=== PATIENT | male | born 1985 | race Caucasian/White ===

== ENCOUNTER 2017-08-23 20:53 | Observation (INO) | payer OTHER ==
--- NOTE | 2017-08-23 21:04 | EDM.PDOC ---
ED HPI GENERAL MEDICAL PROBLEM - General Chief Complaint: Abdominal Pain Stated Complaint: ABDOMINAL PAIN/POST SURGERY Time Seen by Provider: 08/23/17 21:03 Source of Information: Reports: Patient - History of Present Illness INITIAL COMMENTS - FREE TEXT/NARRATIVE: HISTORY AND PHYSICAL: History of present illness: [Patient with abdominal pain, he recently had a surgery concerning an obstruction and Meckel's diverticulum approximately 3 weeks ago Patient currently vomiting as 8 out of 10 epigastric pain ] Review of systems: As per history of present illness and below otherwise all systems reviewed and negative. Past medical history: As per history of present illness and as reviewed below otherwise noncontributory. Surgical history: As per history of present illness and as reviewed below otherwise noncontributory. Social history: No reported history of drug or alcohol abuse. Family history: As per history of present illness and as reviewed below otherwise noncontributory. Physical exam: HEENT: Atraumatic, normocephalic, pupils reactive, negative for conjunctival pallor or scleral icterus, mucous membranes moist, throat clear, neck supple, nontender, trachea midline. Lungs: Clear to auscultation, breath sounds equal bilaterally, chest nontender. Heart: S1S2, regular, negative for clicks, rubs, or JVD. Abdomen: Soft, nondistended, multifocal tenderness Negative for masses or hepatosplenomegaly. Negative for costovertebral tenderness. Pelvis: Stable nontender. Genitourinary: Deferred. Rectal: Deferred. Extremities: Atraumatic, negative for cords or calf pain. Neurovascular unremarkable. Neuro: Awake, alert, oriented. Cranial nerves II through XII unremarkable. Cerebellum unremarkable. Motor and sensory unremarkable throughout. Exam nonfocal. Diagnostics: [CBC CMP UA lipase ]CT abdomen pelvis with contrast Therapeutics: [1 L normal saline bolus Zofran 8 mg IV Morphine 4 mg IV] Morphine 2 mg IV Reglan 10 mg IV Normal saline 1 25 mL per hour Impression: Partial bowel obstruction [Abdominal pain] Definitive disposition and diagnosis as appropriate pending reevaluation and review of above. Abdomen Pain Score (Numeric/FACES): 5 - Related Data Allergies Allergy/AdvReac Type Severity Reaction Status Date / Time acetaminophen [From Tylenol] Allergy Hives Verified 08/23/17 22:15 Home Meds: Home Meds . [No Known Home Meds] 08/23/17 [History] ED ROS GENERAL - Review of Systems Review Of Systems: ROS reveals no pertinent complaints other than HPI. ED EXAM, GENERAL - Physical Exam Exam: See Below Course - Vital Signs Last Recorded V/S: Last Vital Signs Temp 97.6 F 08/23/17 22:13 Pulse 74 08/23/17 22:13 Resp 18 08/23/17 22:13 BP 117/83 08/23/17 22:13 Pulse Ox 95 08/23/17 22:13 - Orders/Labs/Meds Orders: Active Orders 24 hr Category Date Time Status Abdomen Pelvis w Cont [CT] Stat Exams 08/23/17 21:53 Taken UA W/MICROSCOPIC [URIN] Stat Lab 08/23/17 21:02 Ordered Metoclopramide [Reglan] Med 08/24/17 00:38 Once 10 mg IV ONETIME ONE Morphine Med 08/24/17 00:38 Once 2 mg IVPUSH ONETIME ONE Sodium Chloride 0.9% [Normal Saline] 1,000 ml Med 08/24/17 00:45 Ordered IV STAT Labs: Laboratory Tests 08/23/17 08/23/17 Range/Units 21:11 21:11 WBC 11.65 H (4.0-11.0) K/uL RBC 5.34 (4.50-5.90) M/uL Hgb 16.4 (13.0-17.0) g/dL Hct 47.8 (38.0-50.0) % MCV 89.5 (80.0-98.0) fL MCH 30.7 (27.0-32.0) pg MCHC 34.3 (31.0-37.0) g/dL RDW Std Deviation 41.0 (28.0-62.0) fl RDW Coeff of Mian 13 (11.0-15.0) % Plt Count 186 (150-400) K/uL MPV 9.60 (7.40-12.00) fL Neut % (Auto) 79.3 (48.0-80.0) % Lymph % (Auto) 15.1 L (16.0-40.0) % Meade % (Auto) 5.1 (0.0-15.0) % Eos % (Auto) 0.3 (0.0-7.0) % Baso % (Auto) 0.2 (0.0-1.5) % Neut # (Auto) 9.2 H (1.4-5.7) K/uL Lymph # (Auto) 1.8 (0.6-2.4) K/uL Meade # (Auto) 0.6 (0.0-0.8) K/uL Eos # (Auto) 0.0 (0.0-0.7) K/uL Baso # (Auto) 0.0 (0.0-0.1) K/uL Nucleated RBC % 0.0 /100WBC Nucleated RBCs # 0 K/uL Sodium 142 (136-148) mmol/L Potassium 4.5 (3.5-5.1) mmol/L Chloride 106 (98-107) mmol/L Carbon Dioxide 27.6 (21.0-32.0) mmol/L BUN 21 H (7.0-18.0) mg/dL Creatinine 1.1 (0.8-1.3) mg/dL Est Cr Clr Drug Dosing 108.76 mL/min Estimated GFR (MDRD) > 60.0 ml/min Glucose 93 (74-106) mg/dL Calcium 9.7 (8.5-10.1) mg/dL Total Bilirubin 0.9 (0.2-1.0) mg/dL AST 37 (15-37) IU/L ALT 39 (14-63) IU/L Alkaline Phosphatase 68 (46-116) U/L Total Protein 7.9 (6.4-8.2) g/dL Albumin 4.8 (3.4-5.0) g/dL Globulin 3.1 (2.0-3.5) g/dL Albumin/Globulin Ratio 1.5 (1.3-2.8) Lipase 153 (73-393) U/L Meds: Medications Discontinued Medications Generic Name Dose Route Start Last Admin Trade Name Freq PRN Reason Stop Dose Admin Sodium Chloride 1,000 mls @ 999 mls/hr 08/23/17 21:52 08/23/17 22:09 Normal Saline IV 08/23/17 22:52 999 mls/hr STAT ONE Administration Iopamidol 100 ml 08/23/17 23:18 08/23/17 23:29 Isovue Multipack-370 (76%) IVPUSH 08/23/17 23:19 100 ml ONETIME STA Administration Morphine Sulfate 4 mg 08/23/17 21:52 08/23/17 22:11 Morphine IVPUSH 08/23/17 21:53 4 mg ONETIME ONE Administration Ondansetron HCl 8 mg 08/23/17 21:52 08/23/17 22:10 Zofran IVPUSH 08/23/17 21:53 8 mg ONETIME ONE Administration Departure - Departure Time of Disposition: 00:38 Disposition: Refer to Observation Condition: Fair Clinical Impression: Partial bowel obstruction - Discharge Information Referrals: PCP,None [Primary Care Provider] - Forms: ED Department Discharge - My Orders Last 24 Hours: My Active Orders 08/23/17 21:02 UA W/MICROSCOPIC [URIN] Stat 08/23/17 21:53 Abdomen Pelvis w Cont [CT] Stat 08/24/17 00:38 Metoclopramide [Reglan] 10 mg IV ONETIME ONE Morphine 2 mg IVPUSH ONETIME ONE 08/24/17 00:45 Sodium Chloride 0.9% [Normal Saline] 1,000 ml IV STAT - Assessment/Plan Last 24 Hours: My Active Orders 08/23/17 21:02 UA W/MICROSCOPIC [URIN] Stat 08/23/17 21:53 Abdomen Pelvis w Cont [CT] Stat 08/24/17 00:38 Metoclopramide [Reglan] 10 mg IV ONETIME ONE Morphine 2 mg IVPUSH ONETIME ONE 08/24/17 00:45 Sodium Chloride 0.9% [Normal Saline] 1,000 ml IV STAT
[2017-08-23 21:46] LABS: CHLORIDE,CL 106 mmol/L (98-107); SODIUM,NA 142 mmol/L (136-148)
[2017-08-23] MEDS ORDERED: Morphine 4 MG/ML Syringe IVPUSH ONE (21:52)
[2017-08-23] MEDS ORDERED: Sodium Chloride 0.9% 1,000 ML IV ONE (21:52)
[2017-08-23] MEDS ORDERED: Ondansetron 4 MG/2 ML SDV IVPUSH ONE (21:52)
[2017-08-23] MEDS ORDERED: Iopamidol 755 MG/ML 200 ML Multipack Bottle IVPUSH STA (23:18)
[2017-08-24] MEDS ORDERED: Morphine 2 MG/ML Syringe IVPUSH ONE (00:38)
[2017-08-24] MEDS ORDERED: Metoclopramide 10 MG/2 ML SDV IV ONE (00:38)
[2017-08-24] MEDS ORDERED: HYDROmorphone 2 MG/ML SDV IVPUSH PRN (00:43)
[2017-08-24] MEDS ORDERED: Promethazine 25 MG/ML SDV IM PRN (00:43)
[2017-08-24] MEDS ORDERED: Ondansetron 4 MG/2 ML SDV IVPUSH PRN (00:43)
[2017-08-24] MEDS ORDERED: Heparin Sodium 5,000 Units/ML Vial SUBCUT SCH (00:45)
[2017-08-24] MEDS ORDERED: Sodium Chloride 0.9% 1,000 ML IV SCH (00:45)
[2017-08-24 06:03] LABS: CHLORIDE,CL 110 mmol/L (98-107); SODIUM,NA 142 mmol/L (136-148)
[2017-08-24] MEDS ORDERED: HYDROmorphone 1 MG/ML Syringe IVPUSH PRN (07:12)
--- NOTE | 2017-08-24 08:09 | PCM.HP ---
H&P History of Present Illness - General Date of Service: 08/24/17 Admit Problem/Dx: Admission Diagnosis/Problem Admission Diagnosis/Problem Partial bowel obstruction Source of Information: Patient History Limitations: Reports: No Limitations - History of Present Illness Initial Comments - Free Text/Narative: This 31 year old male with pmg of recent having bowel obstruction and found to have Meckel's diverticulum with subsequent surgical removal beginning of July in [place]. He reports everything was going well post-operatively has been only taking Aleve for pain since a week after surgery, tolerating diet well and passing flatus and normal stools. He reports yesterday he suddenly started having LLQ pain similar to his first episode in July prior to surgery associated with nausea and vomiting. He had a normal BM yesterday morning, has not noticed black or bloody BMs and no diarrhea. He was worried because this reminded him so much of the first episode. He denies fevers, URI, chest pain or urinary symptoms. Lap sites intact to abdomen and healing nicely, no erythema. He denies flatus or BM since yesterday. In the ED slight leukocytosis noted at 11,650, BMP WNL. VS were stable. CT of abd/pelvis with contrast revealed Diffuse fluid-filled distention of the small bowel in a pattern suggesting a partial small bowel obstruction. No distinct transition point evident. No other postop complication evident. Remainder of the exam is unremarkable. He was given IVFs, analgesia and anti-emetics in the ED. He was admitted observation for abdominal pain and PSBO. Abdomen Pain Score (Numeric/FACES): 5 - Related Data Allergies/Adverse Reactions: Allergies Allergy/AdvReac Type Severity Reaction Status Date / Time acetaminophen [From Tylenol] Allergy Hives Verified 08/23/17 22:15 Home Medications: Home Meds . [No Known Home Meds] 08/23/17 [History] Past Medical History - Past Health History Medical/Surgical History: Denies Medical/Surgical History Cardiovascular History: Reports: None. Denies: CAD, High Cholesterol, Hypertension, CT Respiratory History: Reports: None. Denies: Asthma Gastrointestinal History: Reports: Bowel Obstruction (Beginning of July 2017 , Meckel's diverticulum) Musculoskeletal History: Reports: None Psychiatric History: Reports: None Endocrine/Metabolic History: Reports: None. Denies: Diabetes, Type II, Hypothyroidism - Past Surgical History GI Surgical History: Reports: Other (See Below) Other GI Surgeries/Procedures: Lap removal of Meckel's diverticulum July 2017 Social & Family History - Family History Family Medical History: Noncontributory - Tobacco Use Smoking Status *Q: Never Smoker Second Hand Smoke Exposure: No - Caffeine Use Caffeine Use: Reports: Coffee - Alcohol Use Alcohol Use History: No - Recreational Drug Use Recreational Drug Use: No H&P Review of Systems - Review of Systems: Review Of Systems: See Below General: Reports: No Symptoms. Denies: Fever, Chills, Malaise, Weakness, Fatigue HEENT: Reports: No Symptoms. Denies: Headaches, Sinus Congestion, Sore Throat, Vertigo Pulmonary: Reports: No Symptoms. Denies: Shortness of Breath, Cough, Sputum Cardiovascular: Reports: No Symptoms. Denies: Chest Pain, Palpitations, Edema Gastrointestinal: Reports: Abdominal Pain (LLQ), Anorexia, Nausea, Vomiting. Denies: Black Stool, Bloody Stool, Constipation, Diarrhea, Flatus, Hematemesis Genitourinary: Reports: No Symptoms. Denies: Dysuria, Frequency, Burning, Pain , Urgency Musculoskeletal: Reports: No Symptoms. Denies: Neck Pain Skin: Reports: No Symptoms Psychiatric: Reports: No Symptoms Neurological: Reports: No Symptoms Hematologic/Lymphatic: Reports: No Symptoms Immunologic: Reports: No Symptoms Exam - Exam Exam: See Below - Vital Signs Vital Signs: Last Vital Signs Temp 98.2 F 08/24/17 04:43 Pulse 77 08/24/17 04:43 Resp 19 08/24/17 04:43 BP 120/68 08/24/17 04:43 Pulse Ox 98 08/24/17 04:43 Weight: 90.718 kg - Exam Quality Assessment: DVT Prophylaxis General: Alert, Oriented, Cooperative HEENT: Conjunctiva Clear, Mucosa Moist & Blende, Normal Nasal Septum, Posterior Pharynx Clear, TMs Clear Neck: Supple, Trachea Midline, 2 Lungs: Clear to Auscultation, Normal Respiratory Effort Cardiovascular: Regular Rate, Regular Rhythm GI/Abdominal Exam: Normal Bowel Sounds, Soft, No Mass, Tender (LLQ). No: Distended, Guarding, Rigid (Male) Exam: No Hernia, Normal Inspection, Normal Prostate, Circumcised Back Exam: Normal Inspection, Full Range of Motion, NT Extremities: Normal Inspection, Normal Range of Motion, Non-Tender, No Pedal Edema, Normal Capillary Refill Neurological: Cranial Nerves Intact, Reflexes Equal Bilateral Neuro Extensive - Mental Status: Alert, Oriented x3, Normal Mood/Affect, Normal Cognition Psychiatric: Alert, Normal Affect, Normal Mood - Patient Data Lab Results Last 24 hrs: Laboratory Results - last 24 hr 08/24/17 08/24/17 Range/Units 05:00 05:00 WBC 7.72 (4.0-11.0) K/uL RBC 4.72 (4.50-5.90) M/uL Hgb 14.3 (13.0-17.0) g/dL Hct 42.4 (38.0-50.0) % MCV 89.8 (80.0-98.0) fL MCH 30.3 (27.0-32.0) pg MCHC 33.7 (31.0-37.0) g/dL RDW Std Deviation 41.9 (28.0-62.0) fl RDW Coeff of Mian 13 (11.0-15.0) % Plt Count 168 (150-400) K/uL MPV 9.90 (7.40-12.00) fL Nucleated RBC % 0.0 /100WBC Nucleated RBCs # 0 K/uL Sodium 142 (136-148) mmol/L Potassium 3.7 (3.5-5.1) mmol/L Chloride 110 H (98-107) mmol/L Carbon Dioxide 27.3 (21.0-32.0) mmol/L BUN 18 (7.0-18.0) mg/dL Creatinine 0.8 (0.8-1.3) mg/dL Est Cr Clr Drug Dosing 149.54 mL/min Estimated GFR (MDRD) > 60.0 ml/min Glucose 90 (74-106) mg/dL Calcium 8.0 L (8.5-10.1) mg/dL Phosphorus 3.7 (2.6-4.7) mg/dL Magnesium 1.6 (1.5-2.0) mg/dL Total Bilirubin 1.0 (0.2-1.0) mg/dL AST 24 (15-37) IU/L ALT 30 (14-63) IU/L Alkaline Phosphatase 44 L (46-116) U/L Total Protein 5.9 L (6.4-8.2) g/dL Albumin 3.5 (3.4-5.0) g/dL Globulin 2.4 (2.0-3.5) g/dL Albumin/Globulin Ratio 1.5 (1.3-2.8) Result Diagrams: 08/24/17 05:00 08/24/17 05:00 *Q Meaningful Use (ADM) - VTE *Q VTE Criteria *Q: - VTE Risk Assess *Q Each Risk Factor Represents 1 Point: None Total Score 1 Point Risk Factors: 0 Each Risk Factor Represents 2 Points: None Total Score 2 Point Risk Factors: 0 Each Risk Factor Represents 3 Points: None Total Score 3 Point Risk Factors: 0 Each Risk Factor Represents 5 Points: None Total Score 5 Point Risk Factors: 0 Venous Thromboembolism Risk Factor Score *Q: 0 - Stroke *Q Stroke Criteria *Q: - AMI *Q AMI Criteria *Q: - Problem List (1) Partial bowel obstruction SNOMED Code(s): 45500144 ICD Code: K56.600 - PARTIAL INTESTINAL OBSTRUCTION, UNSPECIFIED TO CAUSE Status: Acute Current Visit: Yes (2) Hx of Meckel's diverticulum SNOMED Code(s): 138436334 ICD Code: Z87.19 - PERSONAL HISTORY OF OTHER DISEASES OF THE DIGESTIVE SYSTEM Status: Chronic Current Visit: Yes Problem List Initiated/Reviewed/Updated: Yes Orders Last 24hrs: Active Orders 24 hr Category Date Time Status Patient Status [ADT] Routine ADT 08/24/17 00:43 Active Antiembolic Devices [RC] PER UNIT ROUTINE Care 08/24/17 00:44 Active Oxygen Therapy [RC] PRN Care 08/24/17 00:43 Active Up With Assistance [RC] ASDIRECTED Care 08/24/17 00:43 Active VTE/DVT Education [RC] PER UNIT ROUTINE Care 08/24/17 00:43 Active Vital Signs [RC] Q4H Care 08/24/17 00:43 Active Nothing per Oral Now Diet [DIET] Diet 08/24/17 Breakfast Active CBC W/O DIFF,HEMOGRAM [HEME] AM Lab 08/25/17 05:11 Ordered CBC W/O DIFF,HEMOGRAM [HEME] AM Lab 08/26/17 05:11 Ordered COMPREHENSIVE METABOLIC PN,CMP [CHEM] AM Lab 08/25/17 05:11 Ordered COMPREHENSIVE METABOLIC PN,CMP [CHEM] AM Lab 08/26/17 05:11 Ordered HYDROmorphone [Dilaudid] Med 08/24/17 07:12 Active 1 mg IVPUSH Q2H PRN Heparin Sodium Med 08/24/17 12:00 Active 5,000 units SUBCUT Q8H Lactated Ringers [Ringers, Lactated] 1,000 ml Med 08/24/17 00:45 Active IV ASDIRECTED Ondansetron [Zofran] Med 08/24/17 00:43 Active 4 mg IVPUSH Q4H PRN Promethazine [Phenergan] Med 08/24/17 00:43 Active 25 mg IM Q6H PRN Sequential Compression Device [OM.PC] Per Unit Routine Oth 08/24/17 00:44 Ordered Medication Orders Heparin Sodium (Porcine) (Heparin Sodium) 5,000 units SUBCUT Q8H DONOVAN Hydromorphone HCl (Dilaudid) 1 mg IVPUSH Q2H PRN PRN Reason: Pain (severe 7-10) Sodium Chloride (Normal Saline) 1,000 mls @ 125 mls/hr IV STAT DONOVAN Last Admin: 08/24/17 01:17 Dose: 125 mls/hr Lactated Ringer's (Ringers, Lactated) 1,000 mls @ 125 mls/hr IV ASDIRECTED DONOVAN Ondansetron HCl (Zofran) 4 mg IVPUSH Q4H PRN PRN Reason: Nausea Promethazine HCl (Phenergan) 25 mg IM Q6H PRN PRN Reason: Nausea Assessment/Plan Comment:: This 31 year old male admitted with abdominal pain and PSBO 1. PSBO: Hx of Meckel's diverticulum, will consult surgery. For now conservative therapy with bowel rest, IVFs, analagesia PRN and anti-emetics. He is feeling better this morning, slightly agitated and wanting to be discharged home. Explained that it would be best for him to stay until we know his bowels are moving for risk of worsening condition if he were to go home. He needs continued bowel rest with NPO status until pain is better improved and he is passing gas or starting to have BMs. He verbalized understanding. Again will discuss case with Surgery for further recommendations. Ok to have a few ice chips. VTE prophylaxis: SCD and ambulation. Dispo: 1-2 days pending improvement.
[2017-08-24] MEDS: Lactated Ringers 1,000 ML IV SCH ×2 (09:34→17:38)
[2017-08-24] MEDS: Heparin Sodium 5,000 Units/ML Vial SUBCUT SCH ×2 (11:25→20:50)
--- NOTE | 2017-08-24 11:39 | CT ---
EXAM DATE: 08/24/17 PATIENT'S AGE: 31 Patient: WILMAN LAURA Facility: [place], [place] Site . Site : 1985 Study: CT Abdomen/Pelvis [id number]/21/2018 11:48:13 PM Ordering Physician: Melisa Molina Final Report: INDICATION: S/p [place]`s diverticula and hernia surgery. TECHNIQUE: CT abdomen and pelvis acquired with 100 cc Isovue 370 IV contrast. COMPARISON: None. FINDINGS: Lower chest: Unremarkable. Liver: Unremarkable. Normal in size and attenuation. No masses. Gallbladder and bile ducts: Unremarkable. No stones or inflammation. No biliary dilatation. Pancreas: Unremarkable. No mass or inflammation. Spleen: Unremarkable. Normal in size. No masses. Adrenal glands: Unremarkable. No nodules. Kidneys: Unremarkable. No masses, stones, or hydronephrosis. GI tract: There is diffuse fluid-filled distention of the small bowel. The colon is decompressed. Appendix is normal. Vasculature: Unremarkable. Lymph nodes: No lymphadenopathy. Omentum/Peritoneum/Abdominal Wall: Unremarkable. No sign of mass or infiltration. No free air or significant free fluid. Pelvis: Unremarkable. Bones: Unremarkable for age. IMPRESSION: Diffuse fluid-filled distention of the small bowel in a pattern suggesting a partial small bowel obstruction. No distinct transition point evident. No other postop complication evident. Remainder of the exam is unremarkable. Please note that all CT scans at this facility use dose modulation, iterative reconstruction, and/or weight-based dosing when appropriate to reduce radiation dose to as low as reasonably achievable. Dictated by Christopher Ahuja MD @ Aug 23 2017 11:59PM (Electronic Signature) Report Signed by Proxy. [facility]
--- NOTE | 2017-08-24 11:55 | PCM.CONS ---
<Ronald Cruz - Last Filed: 08/24/17 11:50> H&P History of Present Illness - General Date of Service: 08/24/17 Admit Problem/Dx: Admission Diagnosis/Problem Admission Diagnosis/Problem Partial bowel obstruction Source of Information: Patient History Limitations: Reports: No Limitations - History of Present Illness Initial Comments - Free Text/Narative: 31 y/o male admitted overnight for pSBO. 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 That hospitalization was uneventful, and he was doing well until yesterday. He had a BM yesterday morning, then over the course of the day, he developed worsening abdominal pain, nausea, and vomiting. He came to ED, had CT scan, and was admitted. No NG placed at this point. Over the course of this morning, his abdominal pain has essentially resolved, he is no longer nauseous or vomiting, and has not had any antiemetics. He does have an appetite. He is otherwise feeling better. Abdomen Pain Score (Numeric/FACES): 5 - Related Data Allergies/Adverse Reactions: Allergies Allergy/AdvReac Type Severity Reaction Status Date / Time acetaminophen [From Tylenol] Allergy Hives Verified 08/23/17 22:15 Home Medications: Home Meds . [No Known Home Meds] 08/23/17 [History] Past Medical History - Past Health History Medical/Surgical History: Denies Medical/Surgical History Cardiovascular History: Reports: None. Denies: CAD, High Cholesterol, Hypertension, [place] Respiratory History: Reports: None. Denies: Asthma Gastrointestinal History: Reports: Bowel Obstruction (Beginning of July 2017 , Meckel's diverticulum) Musculoskeletal History: Reports: None Psychiatric History: Reports: None Endocrine/Metabolic History: Reports: None. Denies: Diabetes, Type II, Hypothyroidism - Past Surgical History GI Surgical History: Reports: Other (See Below) Other GI Surgeries/Procedures: Laparoscopic removal of Meckel's diverticulum July 2017 Social & Family History - Family History Family Medical History: Noncontributory - Tobacco Use Smoking Status *Q: Never Smoker Second Hand Smoke Exposure: No - Caffeine Use Caffeine Use: Reports: Coffee - Recreational Drug Use Recreational Drug Use: No H&P Review of Systems - Review of Systems: Review Of Systems: See Below General: Reports: No Symptoms HEENT: Reports: No Symptoms Pulmonary: Reports: No Symptoms Cardiovascular: Reports: No Symptoms Gastrointestinal: Reports: Abdominal Pain, Nausea, Vomiting Genitourinary: Reports: No Symptoms Musculoskeletal: Reports: No Symptoms Skin: Reports: No Symptoms Psychiatric: Reports: No Symptoms Neurological: Reports: No Symptoms Hematologic/Lymphatic: Reports: No Symptoms Immunologic: Reports: No Symptoms Exam - Exam Exam: See Below - Vital Signs Vital Signs: Last Vital Signs Temp 36.5 C 08/24/17 11:31 Pulse 57 L 08/24/17 11:31 Resp 16 08/24/17 11:31 BP 105/50 L 08/24/17 11:31 Pulse Ox 96 08/24/17 11:31 Weight: 200 lb - Exam General: Alert, Oriented, Cooperative HEENT: EOMI, Hearing Intact Neck: Supple, Trachea Midline Lungs: Clear to Auscultation, Normal Respiratory Effort Cardiovascular: Regular Rate, Regular Rhythm GI/Abdominal Exam: Soft (laparoscopy sites are well healed ), No Distention, Tender (minimally tender in LLQ ) (Male) Exam: Deferred Rectal (Males) Exam: Deferred Extremities: Normal Inspection Skin: Warm, Dry Neurological: Cranial Nerves Intact Neuro Extensive - Mental Status: Alert, Oriented x3, Normal Mood/Affect, Normal Cognition, Memory Intact Psychiatric: Alert, Normal Affect, Normal Mood - Patient Data Lab Results Last 24 hrs: Laboratory Results - last 24 hr 08/24/17 08/24/17 Range/Units 05:00 05:00 WBC 7.72 (4.0-11.0) K/uL RBC 4.72 (4.50-5.90) M/uL Hgb 14.3 (13.0-17.0) g/dL Hct 42.4 (38.0-50.0) % MCV 89.8 (80.0-98.0) fL MCH 30.3 (27.0-32.0) pg MCHC 33.7 (31.0-37.0) g/dL RDW Std Deviation 41.9 (28.0-62.0) fl RDW Coeff of Mian 13 (11.0-15.0) % Plt Count 168 (150-400) K/uL MPV 9.90 (7.40-12.00) fL Nucleated RBC % 0.0 /100WBC Nucleated RBCs # 0 K/uL Sodium 142 (136-148) mmol/L Potassium 3.7 (3.5-5.1) mmol/L Chloride 110 H (98-107) mmol/L Carbon Dioxide 27.3 (21.0-32.0) mmol/L BUN 18 (7.0-18.0) mg/dL Creatinine 0.8 (0.8-1.3) mg/dL Est Cr Clr Drug Dosing 149.54 mL/min Estimated GFR (MDRD) > 60.0 ml/min Glucose 90 (74-106) mg/dL Calcium 8.0 L (8.5-10.1) mg/dL Phosphorus 3.7 (2.6-4.7) mg/dL Magnesium 1.6 (1.5-2.0) mg/dL Total Bilirubin 1.0 (0.2-1.0) mg/dL AST 24 (15-37) IU/L ALT 30 (14-63) IU/L Alkaline Phosphatase 44 L (46-116) U/L Total Protein 5.9 L (6.4-8.2) g/dL Albumin 3.5 (3.4-5.0) g/dL Globulin 2.4 (2.0-3.5) g/dL Albumin/Globulin Ratio 1.5 (1.3-2.8) Result Diagrams: 08/24/17 05:00 08/24/17 05:00 Consult PN Assessment/Plan (1) Partial bowel obstruction SNOMED Code(s): 51447965 Code(s): K56.600 - PARTIAL INTESTINAL OBSTRUCTION, UNSPECIFIED TO CAUSE Priority: High Current Visit: Yes QualifierTitle: Intestinal obstruction type: unspecified Qualified Code(s ): K56.600 - Partial intestinal obstruction, unspecified as to cause Problem List Initiated/Reviewed/Updated: Yes Plan: His symptoms are resolving, though he denies any flatus or BM at this point. He was advised to ambulate as much as possible. Monitor for bowel function. NG tube PRN for persistent nausea or vomiting. Start clear liquids and see how he tolerates that, advance as tolerated. Continue conservative mgmt. No plan for surgical intervention at this time. Will check on him again later this afternoon for repeat abdominal exam. <Gelacio Espinal - Last Filed: 08/24/17 17:29> H&P History of Present Illness - General Admit Problem/Dx: Admission Diagnosis/Problem Admission Diagnosis/Problem Partial bowel obstruction Exam - Vital Signs Vital Signs: Last Vital Signs Temp 97.7 F 08/24/17 16:00 Pulse 50 L 08/24/17 16:00 Resp 20 08/24/17 16:00 BP 95/54 L 08/24/17 16:00 Pulse Ox 97 08/24/17 16:00 - Patient Data Lab Results Last 24 hrs: Laboratory Results - last 24 hr 08/24/17 08/24/17 Range/Units 05:00 05:00 WBC 7.72 (4.0-11.0) K/uL RBC 4.72 (4.50-5.90) M/uL Hgb 14.3 (13.0-17.0) g/dL Hct 42.4 (38.0-50.0) % MCV 89.8 (80.0-98.0) fL MCH 30.3 (27.0-32.0) pg MCHC 33.7 (31.0-37.0) g/dL RDW Std Deviation 41.9 (28.0-62.0) fl RDW Coeff of Mian 13 (11.0-15.0) % Plt Count 168 (150-400) K/uL MPV 9.90 (7.40-12.00) fL Nucleated RBC % 0.0 /100WBC Nucleated RBCs # 0 K/uL Sodium 142 (136-148) mmol/L Potassium 3.7 (3.5-5.1) mmol/L Chloride 110 H (98-107) mmol/L Carbon Dioxide 27.3 (21.0-32.0) mmol/L BUN 18 (7.0-18.0) mg/dL Creatinine 0.8 (0.8-1.3) mg/dL Est Cr Clr Drug Dosing 149.54 mL/min Estimated GFR (MDRD) > 60.0 ml/min Glucose 90 (74-106) mg/dL Calcium 8.0 L (8.5-10.1) mg/dL Phosphorus 3.7 (2.6-4.7) mg/dL Magnesium 1.6 (1.5-2.0) mg/dL Total Bilirubin 1.0 (0.2-1.0) mg/dL AST 24 (15-37) IU/L ALT 30 (14-63) IU/L Alkaline Phosphatase 44 L (46-116) U/L Total Protein 5.9 L (6.4-8.2) g/dL Albumin 3.5 (3.4-5.0) g/dL Globulin 2.4 (2.0-3.5) g/dL Albumin/Globulin Ratio 1.5 (1.3-2.8) Result Diagrams: 08/24/17 05:00 08/24/17 05:00 Consult PN Assessment/Plan Plan: Radiologic studies personally reviewed. Differential diagnosis includes ileus versus partial small bowel obstruction. Patient seen and examined with Dr. Cruz. I agree with his assessment and plan.
[2017-08-24] MEDS: LORazepam 2 MG/ML SDV IVPUSH PRN ×2 (14:22→20:52)
--- NOTE | 2017-08-24 17:44 | PCM.SN ---
- Free Text/Narrative Note: Patient is feeling better tonight. He has passed gas and had multiple bowel movements. He denies any pain, nausea or vomiting. Patient would benefit from hospital stay one more night. I think his diet could be advanced to either a full liquid or soft diet as his hospitalist team wishes. If he has a good night. He should be able to be discharged tomorrow.
[2017-08-25] MEDS: Heparin Sodium 5,000 Units/ML Vial SUBCUT SCH ×2 (04:11→11:06)
[2017-08-25] MEDS: Lactated Ringers 1,000 ML IV SCH (04:11)
[2017-08-25 06:12] LABS: CHLORIDE,CL 108 mmol/L (98-107); SODIUM,NA 140 mmol/L (136-148)
--- NOTE | 2017-08-25 11:15 | PCM.DCSUM1 ---
Discharge Summary - Hospital Course Brief History: This 31 year old male with pmg of recent having bowel obstruction and found to have Meckel's diverticulum with subsequent surgical removal beginning of July in [place]. He reports everything was going well post-operatively has been only taking Aleve for pain since a week after surgery , tolerating diet well and passing flatus and normal stools. He reports yesterday he suddenly started having LLQ pain similar to his first episode in July prior to surgery associated with nausea and vomiting. He had a normal BM yesterday morning, has not noticed black or bloody BMs and no diarrhea. He was worried because this reminded him so much of the first episode. He denies fevers, URI, chest pain or urinary symptoms. Lap sites intact to abdomen and healing nicely, no erythema. He denies flatus or BM since yesterday. In the ED slight leukocytosis noted at 11,650, BMP WNL. VS were stable. CT of abd/pelvis with contrast revealed Diffuse fluid-filled distention of the small bowel in a pattern suggesting a partial small bowel obstruction. No distinct transition point evident. No other postop complication evident. Remainder of the exam is unremarkable. He was given IVFs, analgesia and anti-emetics in the ED. He was admitted observation for abdominal pain and PSBO. - Discharge Data Discharge Date: 08/25/17 Discharge Disposition: Home, Self-Care 01 Condition: Good - Discharge Diagnosis/Problem(s) (1) Partial bowel obstruction SNOMED Code(s): 47577955 ICD Code: K56.600 - PARTIAL INTESTINAL OBSTRUCTION, UNSPECIFIED TO CAUSE Status: Acute Priority: High Current Visit: Yes Qualifiers: Intestinal obstruction type: unspecified Qualified Code(s): K56.600 - Partial intestinal obstruction, unspecified as to cause (2) Hx of Meckel's diverticulum SNOMED Code(s): 398477613 ICD Code: Z87.19 - PERSONAL HISTORY OF OTHER DISEASES OF THE DIGESTIVE SYSTEM Status: Chronic Current Visit: Yes - Patient Summary/Data Consults: Consultations 08/24/17 09:31 Consult to Physician [CONS] Routine - Patient Instructions Diet: GI Soft/Low Residue/Low Fiber (soft bland, for next few days then slowly back to regular) Activity: As Tolerated, Rest and Relax Today Showering/Bathing: October Shower Notify Provider of: Fever, Increased Pain, Swelling and Redness, Drainage, Nausea and/or Vomiting - Discharge Plan Home Medications: Home Meds . [No Known Home Meds] 08/23/17 [History] Patient Handouts: Small Bowel Obstruction, [id number], Low-Fiber Diet Referrals: PCP,None [Primary Care Provider] - - Discharge Summary/Plan Comment DC Time >30 min.: No Discharge Summary/Plan Comment: Discharge Diagnoses: PSBO-resolved ABdominal pain Hx laparoscopic removal of Meckel's diverticulum Jul 2017 Frederick was admitted and treated with conservative treatment, bowel rest, IVFs and pain control. He started passing gas, last evening and has continued today. He has not had any BMs yet but feels he will need to soon. Scant tenderness remains, more of a soreness to LLQ. He is very eager for discharge. He is tolerating CL diet and will be advanced to [place]. He again is requesting discharge home. Dr Espinal saw him and agreed with conservative treatment and when passing gas he would be able to be discharged home. He is to return to ED or clinic if concerns should arise. Follow up with surgeon in [place] when he returns home. - General Info Date of Service: 08/25/17 Admission Dx/Problem (Free Text: Admission Diagnosis/Problem Admission Diagnosis/Problem Partial bowel obstruction Subjective Update: Feeling much better, slight soreness to LLQ. Tolerating diet, very eager for discharge today. no chest pain or SOB. Functional Status: Reports: Pain Controlled, Tolerating Diet, Ambulating - Review of Systems General: Reports: No Symptoms. Denies: Fever, Weakness, Fatigue HEENT: Reports: No Symptoms. Denies: Headaches, Sinus Congestion, Visual Changes Pulmonary: Reports: No Symptoms Cardiovascular: Reports: No Symptoms. Denies: Chest Pain Gastrointestinal: Reports: Abdominal Pain (soreness to LLQ improved). Denies: Melena, Nausea, Vomiting Genitourinary: Reports: No Symptoms Skin: Reports: No Symptoms Neurological: Reports: No Symptoms Psychiatric: Reports: No Symptoms - Patient Data Vitals - Most Recent: Last Vital Signs Temp 98.9 F 08/25/17 08:00 Pulse 55 L 08/25/17 08:00 Resp 16 08/25/17 08:00 BP 100/46 L 08/25/17 08:00 Pulse Ox 97 08/25/17 08:00 Weight - Most Recent: 90.718 kg I&O - Last 24 hours: Intake & Output 08/24/17 08/25/17 08/25/17 22:59 06:59 14:59 Intake Total 2216 1600 Output Total 1000 0 Balance 1216 1600 Lab Results - Last 24 hrs: Laboratory Results - last 24 hr 08/25/17 08/25/17 Range/Units 05:18 05:18 WBC 3.80 L (4.0-11.0) K/uL RBC 4.14 L (4.50-5.90) M/uL Hgb 12.5 L (13.0-17.0) g/dL Hct 37.5 L (38.0-50.0) % MCV 90.6 (80.0-98.0) fL MCH 30.2 (27.0-32.0) pg MCHC 33.3 (31.0-37.0) g/dL RDW Std Deviation 42.3 (28.0-62.0) fl RDW Coeff of Mian 13 (11.0-15.0) % Plt Count 141 L (150-400) K/uL MPV 9.90 (7.40-12.00) fL Nucleated RBC % 0.0 /100WBC Nucleated RBCs # 0 K/uL Sodium 140 (136-148) mmol/L Potassium 3.7 (3.5-5.1) mmol/L Chloride 108 H (98-107) mmol/L Carbon Dioxide 27.2 (21.0-32.0) mmol/L BUN 11 (7.0-18.0) mg/dL Creatinine 0.7 L (0.8-1.3) mg/dL Est Cr Clr Drug Dosing 170.90 mL/min Estimated GFR (MDRD) > 60.0 ml/min Glucose 91 (74-106) mg/dL Calcium 7.8 L (8.5-10.1) mg/dL Total Bilirubin 0.9 (0.2-1.0) mg/dL AST 18 (15-37) IU/L ALT 22 (14-63) IU/L Alkaline Phosphatase 33 L (46-116) U/L Total Protein 5.2 L (6.4-8.2) g/dL Albumin 2.9 L (3.4-5.0) g/dL Globulin 2.3 (2.0-3.5) g/dL Albumin/Globulin Ratio 1.3 (1.3-2.8) Med Orders - Current: Current Medications Heparin Sodium (Porcine) (Heparin Sodium) 5,000 units SUBCUT Q8H [facility] Last Admin: 08/25/17 11:06 Dose: 5,000 units Hydromorphone HCl (Dilaudid) 1 mg IVPUSH Q2H PRN PRN Reason: Pain (severe 7-10) Lactated Ringer's (Ringers, Lactated) 1,000 mls @ 125 mls/hr IV ASDIRECTED [facility] Last Admin: 08/25/17 04:11 Dose: 125 mls/hr Lorazepam (Ativan) 1 mg IVPUSH Q6H PRN PRN Reason: anxiety/agitation Last Admin: 08/24/17 20:52 Dose: 0.5 ml Ondansetron HCl (Zofran) 4 mg IVPUSH Q4H PRN PRN Reason: Nausea Promethazine HCl (Phenergan) 25 mg IM Q6H PRN PRN Reason: Nausea Discontinued Medications Heparin Sodium (Porcine) (Heparin Sodium) 5,000 units SUBCUT Q8H [facility] Last Admin: 08/24/17 03:40 Dose: 5,000 units Hydromorphone HCl (Dilaudid) 1 mg IVPUSH Q2H PRN PRN Reason: Pain (severe 7-10) Sodium Chloride (Normal Saline) 1,000 mls @ 999 mls/hr IV STAT ONE Stop: 08/23/17 22:52 Last Admin: 08/23/17 22:09 Dose: 999 mls/hr Sodium Chloride (Normal Saline) 1,000 mls @ 125 mls/hr IV STAT [facility] Last Admin: 08/24/17 01:17 Dose: 125 mls/hr Iopamidol (Isovue Multipack-370 (76%)) 100 ml IVPUSH ONETIME STA Stop: 08/23/17 23:19 Last Admin: 08/23/17 23:29 Dose: 100 ml Metoclopramide HCl (Reglan) 10 mg IV ONETIME ONE Stop: 08/24/17 00:39 Last Admin: 08/24/17 01:19 Dose: 10 mg Morphine Sulfate (Morphine) 4 mg IVPUSH ONETIME ONE Stop: 08/23/17 21:53 Last Admin: 08/23/17 22:11 Dose: 4 mg Morphine Sulfate (Morphine) 2 mg IVPUSH ONETIME ONE Stop: 08/24/17 00:39 Last Admin: 08/24/17 01:20 Dose: 2 mg Ondansetron HCl (Zofran) 8 mg IVPUSH ONETIME ONE Stop: 08/23/17 21:53 Last Admin: 08/23/17 22:10 Dose: 8 mg - Exam General: Reports: Alert, Oriented, Cooperative, No Acute Distress Lungs: Reports: Clear to Auscultation, Normal Respiratory Effort Cardiovascular: Reports: Regular Rate, Regular Rhythm GI/Abdominal Exam: Normal Bowel Sounds, Soft, No Organomegaly, No Distention, No Abnormal Bruit, No Mass, Pelvis Stable, Tender (scant soreness to LLQ) Back Exam: Reports: Normal Inspection, Full Range of Motion Extremities: Normal Inspection, Normal Range of Motion, Non-Tender, No Pedal Edema, Normal Capillary Refill Neurological: Reports: No New Focal Deficit Psy/Mental Status: Reports: Alert, Normal Affect, Normal Mood *Q Meaningful Use (DIS) - VTE *Q VTE Criteria *Q: - Stroke *Q Stroke Criteria *Q: - AMI *Q AMI Criteria *Q:
== END 2017-08-25 12:35 | disposition home or self-care (01) ==
LOC: MW.ED 20:53 → MW.MS 08-24 00:39
PROVIDERS: ADMIT Family Medicine; ATTEND Family Medicine
DX: K56.600 Partial intestinal obstruction, unspecified as to cause (principal); Z87.19 Personal history of other diseases of the digestive system; Z88.6 Allergy status to analgesic agent
CPT/HCPCS: 36415; 74177; 80053; 83690; 83735; 84100; 85025; 85027; 96361; 96372; 96374; 96375; 96376; 99285; G0378; J1644; J2060; J2270; J2405; J2765; J7040; J7120; Q9967; 99283